=== PATIENT | male | born 1955 | race Caucasian/White ===

== ENCOUNTER 2022-11-08 13:34 | Emergency (ER) | payer BC, MEDICAID ==
[~2022-11-08] VITALS: Ht 167.6 cm; Wt 60.0 kg
[2022-11-08 18:36] VITALS: BP 112/67
== END 2022-11-08 18:53 | disposition home or self-care (01) ==
LOC: ER 13:34
DX: F10.129 Alcohol abuse with intoxication, unspecified (principal); Y90.0 Blood alcohol level of less than 20 mg/100 ml
CPT/HCPCS: 99283